=== PATIENT | male | born 1975 ===

== ENCOUNTER 2020-07-02 13:29 | Emergency (ER) | payer OTHER ==
--- NOTE | 2020-07-02 14:30 | ER ---
Nurse's Notes [facility] Name: Fred Holliday Age: 44 yrs Sex: Male : 1975 Arrival Date: 07/02/2020 Time: 13:30 Bed 15 Private MD: Alexander Freire Diagnosis: Dental caries Presentation: 07/02 13:44 Chief complaint: Patient states: L upper jaw tooth pain since Friday. No fever. ll1 Coronavirus screen: Client denies travel out of the [place] in the last 14 days. At this time, the client does not indicate any symptoms associated with coronavirus-19. Ebola Screen: Patient denies travel to an Ebola-affected area in the 21 days before illness onset. Initial Sepsis Screen: Does the patient meet any 2 criteria? HR > 90 bpm. No. Patient's initial sepsis screen is negative. Does the patient have a suspected source of infection? Yes: Other: tooth pain. Risk Assessment: Do you want to hurt yourself or someone else? Patient reports no desire to harm self or others. Onset of symptoms was June 30, 2020. 13:44 Method Of Arrival: Ambulatory ll1 13:44 Acuity: KAREN 4 ll1 Historical: - Allergies: 13:43 No Known Allergies; ll1 - PMHx: 13:43 non hodgkins lymphoma; avascular necrosis; ll1 - PSHx: 13:43 bilateral hip replacement; ll1 - Immunization history:: Flu vaccine is up to date. - Social history:: Smoking status: Patient denies any tobacco usage or history of. Screenin:35 Abuse screen: Denies threats or abuse. Nutritional screening: No deficits noted. vg1 Tuberculosis screening: No symptoms or risk factors identified. Fall Risk None identified. Assessment: 14:35 General: Appears in no apparent distress. uncomfortable, Behavior is calm, cooperative. vg1 Pain: Complains of pain in upper left cuspid (#11) Pain currently is 10 out of 10 on a pain scale. Neuro: Level of Consciousness is awake, alert, obeys commands. Neuro: Oriented to person, place, time, situation. Cardiovascular: Patient's skin is warm and dry. Respiratory: Airway is patent Respiratory effort is even, unlabored. Derm: Skin is intact, is healthy with good turgor. Musculoskeletal: Circulation, motion, and sensation intact. Vital Signs: 13:44 BP 121 / 93; Pulse 91; Resp 17; Temp 98.7; Pulse Ox 98% ; Weight 90.72 kg; Height 5 ft. ll1 9 in. (175.26 cm); Pain 10/10; 14:35 BP 122 / 90; Pulse 85; Resp 16; Pulse Ox 98% on R/A; vg1 13:44 Body Mass Index 29.53 (90.72 kg, 175.26 cm) ll1 ED Course: 13:30 Patient arrived in ED. rg4 13:30 Alexander Freire MD is Private Physician. rg4 13:44 Arm band placed on Patient notified of wait time. ll1 13:45 Triage completed. ll1 14:14 Lisa Nicole FNP-C is [facility]. kb 14:14 Mauricio Law MD is Attending Physician. kb 14:28 Aliya Ferreira, RN is Primary Nurse. vg1 14:35 Patient has correct armband on for positive identification. Bed in low position. Call vg1 light in reach. 14:53 No provider procedures requiring assistance completed. Patient did not have IV access vg1 during this emergency room visit. Administered Medications: No medications were administered Outcome: 14:29 Discharge ordered by MD. kb 14:53 Discharged to home ambulatory. vg1 14:53 Condition: stable 14:53 Discharge instructions given to patient, Instructed on discharge instructions, follow up and referral plans. medication usage, Demonstrated understanding of instructions, follow-up care, medications, Prescriptions given X 2. 14:53 Patient left the ED. vg1 Signatures: Lisa Nicole FNP-C FNP-Ckb Garcia, Rubi rg4 Aliya Ferreira, RN RN vg1 Flash Cortes RN RN ll1
--- NOTE | 2020-07-02 14:30 | EDPHYS ---
Physician Documentation [facility] Name: Fred Holliday Age: 44 yrs Sex: Male : 1975 Arrival Date: 07/02/2020 Time: 13:30 Bed 15 Private MD: Alexander Freire ED Physician Mauricio Law HPI: 07/02 14:27 This 44 yrs old Unknown Male presents to ER via Ambulatory with complaints of Teeth kb Problem. 14:27 The patient presents with pain, redness. The problem is located in the upper left kb cuspid (#11). Onset: The symptoms/episode began/occurred 3 day(s) ago. Duration: The symptoms are continuous. Modifying factors: The symptoms are alleviated by nothing, the symptoms are aggravated by nothing. Associated signs and symptoms: Pertinent positives: pain, redness in area. Severity of symptoms: At their worst the symptoms were moderate, in the emergency department the symptoms are unchanged. The patient has experienced similar episodes in the past. The patient has not recently seen a physician. Pt reports poor dentition due to chemo that he had in the past. States he started having a lot of pain to left upper tooth 3 days ago and it is loose. . Historical: - Allergies: 13:43 No Known Allergies; ll1 - PMHx: 13:43 non hodgkins lymphoma; avascular necrosis; ll1 - PSHx: 13:43 bilateral hip replacement; ll1 - Immunization history:: Flu vaccine is up to date. - Social history:: Smoking status: Patient denies any tobacco usage or history of. ROS: 14:23 Constitutional: Negative for fever, chills, and weight loss. kb 14:23 ENT: Positive for dental pain. Exam: 14:23 Constitutional: This is a well developed, well nourished patient who is awake, alert, kb and in no acute distress. Respiratory: Respirations even and unlabored. No increased work of breathing, no retractions or nasal flaring. Skin: Warm, dry with normal turgor. Normal color. Neuro: Awake and alert, GCS 15, oriented to person, place, time, and situation. Moves all extremities. Normal gait. 14:23 ENT: Dental exam: pain, that is moderate, specifically in the upper left cuspid (#11), redness to gums, tooth is loose. Vital Signs: 13:44 BP 121 / 93; Pulse 91; Resp 17; Temp 98.7; Pulse Ox 98% ; Weight 90.72 kg; Height 5 ft. ll1 9 in. (175.26 cm); Pain 10/10; 14:35 BP 122 / 90; Pulse 85; Resp 16; Pulse Ox 98% on R/A; vg1 13:44 Body Mass Index 29.53 (90.72 kg, 175.26 cm) ll1 MDM: 14:14 Patient medically screened. kb 14:26 Data reviewed: vital signs, nurses notes. Data interpreted: Pulse oximetry: on room air kb is 98 %. Interpretation: normal. Counseling: I had a detailed discussion with the patient and/or guardian regarding: the historical points, exam findings, and any diagnostic results supporting the discharge/admit diagnosis, the need for outpatient follow up, a dentist, to return to the emergency department if symptoms worsen or persist or if there are any questions or concerns that arise at home. Administered Medications: No medications were administered Disposition: 15:04 Co-signature as Attending Physician, Mauricio Law MD. rn Disposition: 07/02/20 14:29 Discharged to Home. Impression: Dental caries. - Condition is Stable. - Discharge Instructions: Dental Pain, [id number], Dental Abscess, [id number], Dental Caries, Inzu-hc-Coln. - Prescriptions for Augmentin 875- 125 mg Oral Tablet - take 1 tablet by ORAL route every 12 hours for 10 days; 20 tablet. Tramadol 50 mg Oral Tablet - take 1 tablet by ORAL route every 8 hours as needed; 12 tablet. - Medication Reconciliation Form, Thank You Letter, Antibiotic Education, Prescription Opioid Use form. - Follow up: Emergency Department; When: As needed; Reason: Worsening of condition. Follow up: Private Physician; When: 2 - 3 days; Reason: Recheck today's complaints, Continuance of care, Re-evaluation by your physician. Signatures: Lisa Nicole, GREEN MATERIAL VALUE ADDED ASSESSOR-C GREEN MATERIAL VALUE ADDED ASSESSOR-Mauricio Oquendo MD MD rn Garcia, Victoria RN RN vg1 Flash Cortes RN RN ll1 Corrections: (The following items were deleted from the chart) 14:53 14:29 07/02/2020 14:29 Discharged to Home. Impression: Dental caries. Condition is vg1 Stable. Forms are Medication Reconciliation Form, Thank You Letter, Antibiotic Education, Prescription Opioid Use. Follow up: Emergency Department; When: As needed; Reason: Worsening of condition. Follow up: Private Physician; When: 2 - 3 days; Reason: Recheck today's complaints, Continuance of care, Re-evaluation by your physician. kb
[2020-07-02] MEDS ORDERED: AMOX/K CLAV 875 MG TAB ONE (14:50)
[2020-07-02] MEDS ORDERED: HYDROCODONE/APAP 7.5/325 MG TAB ONE (14:50)
[2020-07-02 15:21] VITALS: TEMP 98.7; O2SAT 98
[2020-07-02 15:23] VITALS: BP 122/90
== END 2020-07-02 14:53 | disposition home or self-care (01) ==
LOC: ER 13:29
DX: K02.9 Dental caries, unspecified (principal); Z85.72 Personal history of non-Hodgkin lymphomas; Z96.643 Presence of artificial hip joint, bilateral
CPT/HCPCS: 99282

== ENCOUNTER 2020-09-16 19:44 | Emergency (ER) | payer OTHER ==
--- NOTE | 2020-09-16 22:23 | ER ---
Nurse's Notes [facility] Name: Fred Holliday Age: 44 yrs Sex: Male : 1975 Arrival Date: 09/16/2020 Time: 19:54 Bed 26 Private MD: Diagnosis: Insect bite of unspecified part of neck;Insect bite (nonvenomous) of lower leg;Insect bite (nonvenomous) of back wall of thorax;Insect bite (nonvenomous) of front wall of thorax Presentation: 09/16 20:08 Chief complaint: Patient states: Reports he recently moved here from [place] reports ea about three weeks ago there have been a whole bunch of insects biting him and his child. Pt stated he didn't think they were mosquitos. Reports having a reaction to them and itching. States "when things like this happen I get septic". Coronavirus screen: At this time, the client does not indicate any symptoms associated with coronavirus-19. Ebola Screen: No symptoms or risks identified at this time. Initial Sepsis Screen: Does the patient meet any 2 criteria? No. Patient's initial sepsis screen is negative. Does the patient have a suspected source of infection? No. Patient's initial sepsis screen is negative. Risk Assessment: Do you want to hurt yourself or someone else? Patient reports no desire to harm self or others. Onset of symptoms. 20:08 Method Of Arrival: Ambulatory ea 20:08 Acuity: KAREN 5 ea Triage Assessment: 21:25 Bite description: animal information: vaccination(s) is not applicable. bb 21:25 Bite description: by insect possibly gnats. Bite description: bite sustained to all bb over. General: Appears in no apparent distress. Historical: - Allergies: 20:11 No Known Allergies; ea - Home Meds: 20:11 None [Active]; ea - PMHx: 20:11 non hodgkins lymphoma; avascular necrosis; ea - PSHx: 20:11 oscar hip replacement; ea - Immunization history:: Adult Immunizations up to date. - Social history:: Smoking status: Patient denies any tobacco usage or history of. Screenin:10 Abuse screen: Denies threats or abuse. Nutritional screening: No deficits noted. ea Tuberculosis screening: No symptoms or risk factors identified. Fall Risk None identified. Assessment: 21:24 General: Appears in no apparent distress. Behavior is calm, cooperative. Pain: Denies bb pain. Neuro: Level of Consciousness is awake, alert, obeys commands, Oriented to person, place, time, situation. Cardiovascular: Capillary refill < 3 seconds Patient's skin is warm and dry. Respiratory: Respiratory effort is even, unlabored, Respiratory pattern is regular. GI: No signs and/or symptoms were reported involving the gastrointestinal system. Derm: Skin is intact, Skin is normal, Skin temperature is warm Reports insect bites all over. Musculoskeletal: Circulation, motion, and sensation intact. 22:40 Reassessment: Patient is alert, oriented x 3, equal unlabored respirations, skin bb warm/dry/pink. pt verbalized understanding of and agrees to plan of care discharge instructions given pt ambulated with steady gait to exit accompanied by family. Vital Signs: 20:08 BP 138 / 92; Pulse 97; Resp 18; Temp 97.3; Pulse Ox 99% ; Weight 95.25 kg; Height 5 ft. ea 9 in. (175.26 cm); 22:35 BP 118 / 65; Pulse 95; Resp 16 S; Temp 97.4(O); Pulse Ox 98% ; bb 20:08 Body Mass Index 31.01 (95.25 kg, 175.26 cm) ea ED Course: 19:54 Patient arrived in ED. bp1 20:10 Triage completed. ea 21:23 Mirta Casas, RN is Primary Nurse. bb 21:24 Patient has correct armband on for positive identification. Call light in reach. bb 21:25 Patient placed in an exam room, on a stretcher. bb 22:00 Chalo Ayala NP is PHCP. pm1 22:00 Abdon Sinha MD is Attending Physician. pm1 22:40 No provider procedures requiring assistance completed. Patient did not have IV access bb during this emergency room visit. Administered Medications: No medications were administered Outcome: 22:22 Discharge ordered by . pm1 22:41 Discharged to home ambulatory, with family. bb 22:41 Condition: stable 22:41 Discharge instructions given to patient, Instructed on discharge instructions, follow up and referral plans. medication usage, Demonstrated understanding of instructions, follow-up care, medications, Prescriptions given X 1. 22:41 Patient left the ED. bb Signatures: Mirta Casas RN RN bb Chalo Ayala, SOLUTIONS OPERATOR SOLUTIONS OPERATOR pm1 Monique Hernandez RN RN ea Maryam Saldaña bp1
--- NOTE | 2020-09-16 22:23 | EDPHYS ---
Physician Documentation [facility] Name: Fred Holliday Age: 44 yrs Sex: Male : 1975 Arrival Date: 09/16/2020 Time: 19:54 Bed 26 Private MD: ED Physician Abdon Sinha HPI: 09/16 22:20 This 44 yrs old Unknown Male presents to ER via Ambulatory with complaints of Insect pm1 Bite. 22:20 The patient's rash thought to be caused by insect bites. The rash is located on the pm1 back, chest, abdomen, right leg, left leg and neck. The rash can be described as raised. Onset: The symptoms/episode began/occurred 3 week(s) ago. Associated signs and symptoms: Pertinent positives: itching, Pertinent negatives: difficulty breathing, fever. Severity of symptoms: in the emergency department the symptoms are unchanged. The patient has not recently seen a physician, just moved to area 3 weeks ago. Patient wants a prescription of antibiotics for himself and his daughter for mosquito bites. Historical: - Allergies: 20:11 No Known Allergies; ea - Home Meds: 20:11 None [Active]; ea - PMHx: 20:11 non hodgkins lymphoma; avascular necrosis; ea - PSHx: 20:11 oscar hip replacement; ea - Immunization history:: Adult Immunizations up to date. - Social history:: Smoking status: Patient denies any tobacco usage or history of. ROS: 22:20 Constitutional: Negative for fever, chills, and weight loss, Cardiovascular: Negative pm1 for chest pain, palpitations, and edema, Respiratory: Negative for shortness of breath, cough, wheezing, and pleuritic chest pain. 22:20 Skin: Positive for rash, itching. 22:20 All other systems are negative. Exam: 22:20 Constitutional: This is a well developed, well nourished patient who is awake, alert, pm1 and in no acute distress. Head/Face: Normocephalic, atraumatic. 22:20 Eyes: Exam is negative for acute changes, Extraocular movements: intact throughout, Conjunctiva: no acute changes, Sclera: icterus, is not appreciated. 22:20 ENT: Mouth: Lips: normal, Oral mucosa: normal, pink and intact, moist. 22:20 Cardiovascular: Rate: normal, Rhythm: regular, Pulses: no pulse deficits are appreciated. 22:20 Respiratory: Exam negative for acute changes, respiratory distress, shortness of breath. 22:20 Skin: Appearance: normal except for affected area, consistent with insect bites, on the right leg and left leg and neck. 22:20 Neuro: Orientation: is normal, Mentation: is normal, Motor: is normal, moves all fours. Vital Signs: 20:08 BP 138 / 92; Pulse 97; Resp 18; Temp 97.3; Pulse Ox 99% ; Weight 95.25 kg; Height 5 ft. ea 9 in. (175.26 cm); 22:35 BP 118 / 65; Pulse 95; Resp 16 S; Temp 97.4(O); Pulse Ox 98% ; bb 20:08 Body Mass Index 31.01 (95.25 kg, 175.26 cm) ea MDM: 22:20 Patient medically screened. pm1 22:20 Data reviewed: vital signs. Data interpreted: Pulse oximetry: on room air is 99 %. pm1 Interpretation: normal. Counseling: I had a detailed discussion with the patient and/or guardian regarding: the historical points, exam findings, and any diagnostic results supporting the discharge/admit diagnosis, the need for outpatient follow up, to return to the emergency department if symptoms worsen or persist or if there are any questions or concerns that arise at home. Administered Medications: No medications were administered Disposition: 09/17 02:34 Co-signature as Attending Physician, Abdon Sinha MD. [email or web address] Disposition: 09/16/20 22:22 Discharged to Home. Impression: Insect bite of unspecified part of neck, Insect bite (nonvenomous) of lower leg, Insect bite (nonvenomous) of back wall of thorax, Insect bite (nonvenomous) of front wall of thorax. - Condition is Stable. - Discharge Instructions: Insect Bite. - Prescriptions for Bactrim DS 800- 160 mg Oral Tablet - take 1 tablet by ORAL route every 12 hours for 10 days; 20 tablet. - Medication Reconciliation Form, Thank You Letter, Antibiotic Education, Prescription Opioid Use form. - Follow up: Emergency Department; When: As needed; Reason: Worsening of condition. Follow up: Private Physician; When: 2 - 3 days; Reason: Recheck today's complaints, Continuance of care, Re-evaluation by your physician. - Problem is new. - Symptoms have improved. Signatures: Mirta Casas RN RN bb Marinas, Patrick, NP [employer] pm1 Monique Hernandez RN RN ea Holmes, Maurice, MD MD [email or web address] Corrections: (The following items were deleted from the chart) 09/16 22:41 22:22 09/16/2020 22:22 Discharged to Home. Impression: Insect bite of unspecified part bb of neck; Insect bite (nonvenomous) of lower leg; Insect bite (nonvenomous) of back wall of thorax; Insect bite (nonvenomous) of front wall of thorax. Condition is Stable. Forms are Medication Reconciliation Form, Thank You Letter, Antibiotic Education, Prescription Opioid Use. Follow up: Emergency Department; When: As needed; Reason: Worsening of condition. Follow up: Private Physician; When: 2 - 3 days; Reason: Recheck today's complaints, Continuance of care, Re-evaluation by your physician. Problem is new. Symptoms have improved. pm1
[2020-09-16 22:46] VITALS: BP 138/92; TEMP 97.3; O2SAT 99
== END 2020-09-16 22:41 | disposition home or self-care (01) ==
LOC: ER 19:44
DX: S10.96XA Insect bite of unspecified part of neck, initial encounter (principal); S80.862A Insect bite (nonvenomous), left lower leg, initial encounter; S80.861A Insect bite (nonvenomous), right lower leg, initial encounter; S20.469A Insect bite (nonvenomous) of unspecified back wall of thorax, initial encounter; S20.369A Insect bite (nonvenomous) of unspecified front wall of thorax, initial encounter
CPT/HCPCS: 99282